=== PATIENT | female | born 1955 | race Caucasian/White ===

== ENCOUNTER → 2017-02-18 10:58 | Outpatient (CLI) | payer MEDICARE, BC ==
[2016-09-04 15:01] VITALS: BMI 25.1
[~2017-02-18 10:58] MED LIST: FISH OIL 1,0001 CA1 PO; HYDROCODONE-APA1 TAB PO; KLONOPIN1 MG PO; NORVASC2.5 MG PO; SOMA350 MG PO; TENORMIN25 MG; TENORMIN25 MG PO; TRAZO; TRAZODONE HCL50 MG PO; TRIGLIDE160 MG PO; VITAMIN E400 UNI2 PO
== END | disposition home or self-care (01) ==
LOC: D.CT 10:58
DX: R59.0 Localized enlarged lymph nodes (principal)

== ENCOUNTER → 2017-07-03 09:14 | Outpatient (CLI) | payer MEDICARE, BC ==
[2016-09-04 15:01] VITALS: BMI 25.1
== END | disposition home or self-care (01) ==
LOC: D.RAD 09:14
DX: R13.10 Dysphagia, unspecified (principal)

== ENCOUNTER 2017-08-05 07:50 | Outpatient (CLI) | payer MEDICARE, BC ==
[2016-09-04 15:01] VITALS: BMI 25.1
== END 2017-08-05 09:45 ==
LOC: D.OPS 07:50
DX: R13.10 Dysphagia, unspecified (principal)

== ENCOUNTER → 2018-03-03 10:11 | Outpatient (CLI) | payer MEDICARE, OTHER ==
[2016-09-04 15:01] VITALS: BMI 25.1
== END | disposition home or self-care (01) ==
LOC: D.CT 10:11
DX: R10.9 Unspecified abdominal pain (principal)

== ENCOUNTER → 2018-03-10 16:56 | Outpatient (CLI) | payer MEDICARE, OTHER ==
[2016-09-04 15:01] VITALS: BMI 25.1
== END | disposition home or self-care (01) ==
LOC: D.US 16:56
DX: N28.1 Cyst of kidney, acquired (principal)

== ENCOUNTER 2018-07-07 13:31 | Outpatient (CLI) | payer MEDICARE, OTHER ==
[~2018-07-07] VITALS: Ht 157.5 cm; Wt 63.6 kg
[2018-07-07 15:25] VITALS: BP 140/71; Ht 157.5 cm; Wt 63.6 kg
== END 2018-07-07 15:53 | disposition home or self-care (01) ==
LOC: D.OPS 13:31
DX: M81.0 Age-related osteoporosis without current pathological fracture (principal); Z01.812 Encounter for preprocedural laboratory examination

== ENCOUNTER → 2018-10-05 10:01 | Outpatient (CLI) | payer MEDICARE, OTHER ==
[2018-07-07 15:25] VITALS: BMI 25.6
== END | disposition home or self-care (01) ==
LOC: D.RAD 09-30 13:30
DX: M25.552 Pain in left hip (principal)

== ENCOUNTER → 2020-03-03 10:04 | Outpatient (CLI) | payer MEDICARE, OTHER ==
[2018-07-07 15:25] VITALS: BMI 25.6
== END | disposition home or self-care (01) ==
LOC: D.US 10:04
PROVIDERS: ATTEND Family Medicine
DX: R60.0 Localized edema (principal); E78.5 Hyperlipidemia, unspecified; I10 Essential (primary) hypertension; K21.9 Gastro-esophageal reflux disease without esophagitis; M53.3 Sacrococcygeal disorders, not elsewhere classified; M79.651 Pain in right thigh